=== PATIENT | female | born 1985 | race Hispanic/Latino ===

== ENCOUNTER 2021-01-12 21:12 | Emergency (ER) | payer SELFPAY ==
[~2021-01-12] VITALS: Ht 160 cm; Wt 61.2 kg
[2021-01-12] MEDS ORDERED: CASIRIVIMAB/IMDEVIMAB 10 ML in SODIUM CHLORIDE 0.9% 100 ML IV ONE (21:30)
[2021-01-12 23:01] VITALS: BP 126/62
== END 2021-01-12 23:03 | disposition home or self-care (01) ==
LOC: ER 21:19
DX: R05 Cough (principal); U07.1 COVID-19
CPT/HCPCS: 99283; J7050

== ENCOUNTER 2021-01-26 15:33 | Emergency (ER) | payer SELFPAY ==
[~2021-01-26] VITALS: Ht 160 cm; Wt 61.2 kg
[2021-01-26] MEDS ORDERED: ASPIRIN 81 MG CHEW TAB PO ONE (16:00)
[2021-01-26 16:03] LABS: BASOPHILS # (AUTO) 0.1 (0.0-0.1); BASOPHILS % 0.6 % (0.0-1.0); EOSINOPHILS # (AUTO) 0.1 (0.0-0.4); EOSINOPHILS % 1.1 % (0.0-6.0); HEMATOCRIT 42.5 % (34.2-44.1); HEMOGLOBIN 14.1 g/dL (12.0-16.0); LYMPHOCYTES % 21.7 % (18.0-39.1); MEAN CORPUSCULAR HEMOGLOBIN 30.8 pg (28-32); MEAN CORPUSCULAR HGB CONC 33.2 g/dL (31-35); MEAN CORPUSCULAR VOLUME 92.8 fL (81-99); MONOCYTES # (AUTO) 0.6 (0.2-0.8); MONOCYTES % 7.1 % (4.4-11.3); NEUTROPHILS # (AUTO) 6.2 (2.1-6.9); NEUTROPHILS % 68.9 % (38.7-80.0); PLATELET COUNT 240 x10e3/uL (140-360); RED BLOOD COUNT 4.58 x10e6/uL (3.6-5.1); RED CELL DISTRIBUTION WIDTH 12.8 % (11.7-14.4)
[2021-01-26 16:26] LABS: ALBUMIN 4.6 g/dL (3.5-5.0); ALBUMIN/GLOBULIN RATIO 1.4 (0.8-2.0); ANION GAP 13.7 mmol/L (8-16); CALCIUM 9.3 mg/dL (8.4-10.2); CREATININE, SERUM 0.75 mg/dL (0.57-1.11); POTASSIUM 3.7 mmol/L (3.5-5.1)
[2021-01-26 16:33] LABS: CREATINE KINASE MB 0.4 ng/mL (0-5.0)
== END 2021-01-26 20:24 | disposition home or self-care (01) ==
LOC: ER 15:53
DX: R07.89 Other chest pain (principal)
CPT/HCPCS: 36415; 71045; 80053; 82550; 82553; 84484; 85025; 85379; 99284